=== PATIENT | male | born 1935 | race Caucasian/White ===

== ENCOUNTER 2016-11-18 10:41 | Inpatient (IN) | payer MEDICARE, BC ==
[2016-11-18] VITALS (12 sets, daily range): BP systolic 154–170; BP diastolic 67–77; PULSE 64–98; RESP 16–22; TEMP 97.6–98.3; O2SAT 94–99
[~2016-11-18] VITALS: Ht 162.6 cm; Wt 72.7 kg
[~2016-11-18 10:41] MED LIST: ASPI1TAB69 PO; ATOR10TA15 PO; ENAL10TA PO; METF500T PO; MULTTAB67 PO; OMEP20TA PO; PARO20TA2 PO; TOBRSUS9 RIGHT EYE; WARF4TAB51 PO
[2016-11-18] MEDS ORDERED: ASPI81CH PO (11:05)
[2016-11-18] MEDS ORDERED: SODIUM CHLORIDE 0.9% FLUSH 10 ML FLUSH IVF PRN (11:15)
[2016-11-18 11:36] LABS: AUTOMATED NEUTROPHIL # 3.9 TH/MM3 (1.8-7.7); BASOPHIL % 0.9 % (0.0-2.0); EOSINOPHIL # 0.1 TH/MM3 (0-0.4); EOSINOPHIL % 1.4 % (0.0-4.0); LYMPH % 20.7 % (9.0-44.0); LYMPHOCYTE # 1.2 TH/MM3 (1.0-4.8); MEAN CELL VOLUME 62.6 FL (80.0-100.0); MEAN CORPUSCULAR HEMOGLOBIN 17.4 PG (27.0-34.0); MONO % 9.6 % (0.0-8.0); NEUT % 67.4 % (16.0-70.0); PLATELET COUNT 257 TH/MM3 (150-450); RED BLOOD COUNT 3.49 MIL/MM3 (4.50-5.90); RED CELL DISTRIBUTION WIDTH 21.7 % (11.6-17.2); WHITE BLOOD COUNT 5.7 TH/MM3 (4.0-11.0)
[2016-11-18 11:40] LABS: HEMO FLAGS DIFF FINAL; MEAN CORPUSCULAR HGB CONC 27.8 % (32.0-36.0)
[2016-11-18 11:45] LABS: HEMATOCRIT 21.9 % (39.0-51.0)
[2016-11-18 11:49] LABS: APTT (PATIENT) 24.7 SEC (24.3-30.1); INTERNATIONAL NORMALIZED RATIO 1.7 RATIO; PROTHROMBIN TIME - PATIENT 18.7 SEC (9.8-11.6)
[2016-11-18 11:51] LABS: ALT (GPT) 13 U/L (12-78); ANION GAP 7 MEQ/L (5-15); AST (GOT) 9 U/L (15-37); BICARBONATE 23.8 MEQ/L (21.0-32.0); BLOOD UREA NITROGEN 14 MG/DL (7-18); CHLORIDE 110 MEQ/L (98-107); GLOMERULAR FILTRATION RATE 60 ML/MIN (>89); POTASSIUM 4.4 MEQ/L (3.5-5.1); SODIUM (NA) 141 MEQ/L (136-145)
[2016-11-18 11:54] LABS: ALKALINE PHOSPHATASE 63 U/L (45-117); TOTAL BILIRUBIN ADULT 0.4 MG/DL (0.2-1.0)
--- NOTE | 2016-11-18 12:38 | PD ---
HPI Chief Complaint: Abnormal Results Time Seen by Provider: 10:52 Travel History International Travel<30 days: No Contact w/Intl Traveler<30days: No Traveled to known affect area: No History of Present Illness HPI This is a 81-year-old male who presents to the emergency department having had an incidentally low hemoglobin checked by his primary care doctor. His hemoglobin was 5.9. He does say he's been more fatigued over the past several months, short of breath with exertion and tired when walking long distances but he says he thought it was related to his cigarette smoking, moderate severity, constant. He denies any dark stools or black stools. He had a colonoscopy 4 years ago and had polyps removed. She does straight 5 alcoholic beverages per day. He denies any NSAID use. PFSH Past Medical History Hx Anticoagulant Therapy: Yes Arthritis: Yes Atrial Fibrillation: Yes Cancer: No Cardiovascular Problems: Yes (A-FIB, ON COUMADIN) Congestive Heart Failure: No Diabetes: Yes Patient Takes Glucophage: Yes Diminished Hearing: No Endocrine: Yes Gastrointestinal Disorders: Yes (CONSTIPATION) Glaucoma: No Genitourinary: No Hepatitis: No Hiatal Hernia: No Hypertension: Yes Immune Disorder: No Musculoskeletal: Yes Neurologic: No Reproductive: No Respiratory: No Thyroid Disease: No Tetanus Vaccination: > 5 Years Influenza Vaccination: Yes Past Surgical History Abdominal Surgery: Yes Appendectomy: Yes Cardiac Surgery: No Ear Surgery: No Endocrine Surgery: No Eye Surgery: No Genitourinary Surgery: Yes (HYDROCELE 2003) Gynecologic Surgery: No Oral Surgery: No Pacemaker: No Thoracic Surgery: No Other Surgery: Yes Social History Alcohol Use: Yes (6 DRINKS PER DAY) Tobacco Use: Yes (< 1 PPD) Substance Use: No (pt denies) Allergies-Medications (Allergen,Severity, Reaction): Coded Allergies: penicillin G (Unverified Allergy, Severe, hives, 11/18/16) Reported Meds & Prescriptions Reported Meds & Active Scripts Active Reported Aspirin 81 Mg Chew 81 Mg PO DAILY Paroxetine (Paroxetine HCl) 20 Mg Tab 20 Mg PO DAILY Warfarin 2 Mg Tab 2 Mg PO DAILY Metformin (Metformin HCl) 500 Mg Tab 500 Mg PO BIDPC With meals Omeprazole 20 Mg Tab 20 Mg PO DAILY Atorvastatin (Atorvastatin Calcium) 10 Mg Tab 10 Mg PO HS Review of Systems Except as stated in HPI: all other systems reviewed are Neg Physical Exam Narrative GENERAL:Well appearing, no acute distress SKIN: Focused skin assessment warm and dry. HEAD: Atraumatic. Normocephalic. EYES: Pupils equal and round. No injection or drainage. ENT: Moist mucous membranes NECK: Trachea midline. CARDIOVASCULAR: Regular rate and rhythm. No murmur appreciated. RESPIRATORY: Clear to auscultation. Breath sounds equal bilaterally. GASTROINTESTINAL: Abdomen soft, non-tender, nondistended. MUSCULOSKELETAL: No obvious deformities. NEUROLOGICAL: Awake and alert. No obvious cranial nerve deficits. Moving all extremities. PSYCHIATRIC: Appropriate mood and affect; insight and judgment normal. Data Data Last Documented VS Vital Signs Date Time Temp Pulse Resp B/P (MAP) Pulse Ox O2 Delivery O2 Flow Rate FiO2 11/18/16 11:08 18 98 Room Air 11/18/16 11:07 108 11/18/16 10:44 97.9 Orders Orders Complete Blood Count With Diff (11/18/16 11:04) Comprehensive Metabolic Panel (11/18/16 11:04) Prothrombin Time / Inr (Pt) (11/18/16 11:04) Act Partial Throm Time (Ptt) (11/18/16 11:04) Type And Screen (11/18/16 11:04) Ecg Monitoring (11/18/16 11:04) Iv Access Insert/Monitor (11/18/16 11:04) Oximetry (11/18/16 11:04) Sodium Chloride 0.9% Flush (Ns Flush) (11/18/16 11:15) Admit Order (Ed Use Only) (11/18/16 12:29) Iron/Tibc Profile (11/18/16 12:29) Ferritin (11/18/16 12:29) Labs Laboratory Tests Test 11/18/16 11:15 White Blood Count 5.7 TH/MM3 Red Blood Count 3.49 MIL/MM3 Hemoglobin 6.1 GM/DL Hematocrit 21.9 % Mean Corpuscular Volume 62.6 FL Mean Corpuscular Hemoglobin 17.4 PG Mean Corpuscular Hemoglobin Concent 27.8 % Red Cell Distribution Width 21.7 % Platelet Count 257 TH/MM3 Mean Platelet Volume 8.5 FL Neutrophils (%) (Auto) 67.4 % Lymphocytes (%) (Auto) 20.7 % Monocytes (%) (Auto) 9.6 % Eosinophils (%) (Auto) 1.4 % Basophils (%) (Auto) 0.9 % Neutrophils # (Auto) 3.9 TH/MM3 Lymphocytes # (Auto) 1.2 TH/MM3 Monocytes # (Auto) 0.5 TH/MM3 Eosinophils # (Auto) 0.1 TH/MM3 Basophils # (Auto) 0.0 TH/MM3 CBC Comment DIFF FINAL Differential Comment Prothrombin Time 18.7 SEC Prothromb Time International Ratio 1.7 RATIO Activated Partial Thromboplast Time 24.7 SEC Blood Urea Nitrogen 14 MG/DL Creatinine 1.18 MG/DL Random Glucose 117 MG/DL Total Protein 7.8 GM/DL Albumin 3.6 GM/DL Calcium Level 8.4 MG/DL Alkaline Phosphatase 63 U/L Aspartate Amino Transf (AST/SGOT) 9 U/L Alanine Aminotransferase (ALT/SGPT) 13 U/L Total Bilirubin 0.4 MG/DL Sodium Level 141 MEQ/L Potassium Level 4.4 MEQ/L Chloride Level 110 MEQ/L Carbon Dioxide Level 23.8 MEQ/L Anion Gap 7 MEQ/L Estimat Glomerular Filtration Rate 60 ML/MIN MDM Medical Decision Making Medical Screen Exam Complete: Yes Emergency Medical Condition: Yes Interpretation(s) hbg 6.1 hct 62 microcytic electrolytes within normal limits Differential Diagnosis Upper GI bleed, lower GI bleed, anemia of chronic disease, vitamin deficiency Narrative Course This is a 81-year-old male who presents to the emergency department with a low hemoglobin. 3 days ago his hemoglobin was 5.9. He's been increasingly symptomatic. He denies any blood in his stools or black stools but he does drink 5 alcoholic beverages a day. He was placed on a monitor and an IV was established. He will be admitted in the setting of anemia for hemoglobin of 6.1. Patient will be transfused and GI will be consulted although patient did have a negative Hemoccult here in the ER. Diagnosis Primary Impression: Anemia Qualified Codes: D64.9 - Anemia, unspecified Admitting Information Admitting Physician Requests: Admit Alison Yi MD Nov 18, 2016 12:38
[2016-11-18] MEDS ORDERED: GLUCAGON 1 MG/ML VIAL OTHER PRN (13:00)
[2016-11-18] MEDS ORDERED: DEXTROSE 50% IN WATER 50 ML VIAL(D50) IV PRN (13:00)
[2016-11-18] MEDS ORDERED: SODIUM CHLORIDE 0.9% FLUSH 10 ML FLUSH IV FLUSH PRN ×3 (13:00→13:15)
[2016-11-18] MEDS ORDERED: NON-FORMULARY DRUG (Omeprazole 20 MG) PO SCH (13:00)
[2016-11-18] MEDS ORDERED: ACETAMINOPHEN 325 MG TAB PO PRN ×3 (13:15→15:30)
[2016-11-18] MEDS ORDERED: MORPHINE SULFATE 4 MG/ML INJ IV PRN ×2 (13:15)
[2016-11-18] MEDS ORDERED: SENNOSIDES 8.6 MG TAB PO PRN (13:15)
[2016-11-18] MEDS ORDERED: MAGNESIUM HYDROXIDE SUSP 30 ML CUP PO PRN (13:15)
[2016-11-18] MEDS ORDERED: LACTULOSE SYRUP 20 GM/30 ML CUP PO PRN (13:15)
[2016-11-18] MEDS ORDERED: RESP: ALBUTEROL 2.5 MG/IPRATROPIUM 0.5 MG NEB (PRN) NEB (13:15)
[2016-11-18] MEDS ORDERED: LORazepam 2 MG TAB PO PRN (13:15)
[2016-11-18] MEDS ORDERED: FLUMAZENIL 0.5 MG/5 ML VIAL IV PUSH PRN (13:15)
[2016-11-18] MEDS ORDERED: PROCHLORPERAZINE 25 MG SUPP RECTAL PRN (13:15)
[2016-11-18] MEDS ORDERED: NALOXONE HCL 0.4 MG/ML AMP IV PRN (13:15)
[2016-11-18] MEDS ORDERED: ONDANSETRON HCL 4 MG/2 ML VIAL IVP PRN (13:15)
[2016-11-18] MEDS ORDERED: oxyCODONE/ACETAMINOPHEN 10 MG/325 MG TAB PO PRN (13:15)
[2016-11-18] MEDS ORDERED: BISACODYL 10 MG SUPP RECTAL PRN (13:15)
[2016-11-18] MEDS ORDERED: LORazepam 2 MG/ML VIAL IV PUSH PRN ×4 (13:15)
[2016-11-18] MEDS ORDERED: cloNIDine HCL 0.1 MG TAB PO PRN (13:15)
[2016-11-18] MEDS ORDERED: LORazepam 1 MG TAB PO PRN (13:15)
[2016-11-18] MEDS ORDERED: oxyCODONE/ACETAMINOPHEN 5 MG/325 MG TAB PO PRN (13:15)
[2016-11-18 13:29] LABS: TRANSFERRIN IRON PROFILE 372 MG/DL (200-360)
[2016-11-18 13:31] LABS: FERRITIN 6 NG/ML (26-388)
--- NOTE | 2016-11-18 13:59 | HHI.HP ---
[facility] Service [facility] Primary Care Physician Non-Staff Admission Diagnosis anemia Diagnoses: (1) COPD (chronic obstructive pulmonary disease) Diagnosis: Secondary (2) GERD (gastroesophageal reflux disease) Diagnosis: Principal (3) Tobacco abuse Diagnosis: Secondary (4) Anemia Diagnosis: Principal (5) Alcohol abuse Diagnosis: Principal (6) Atrial fibrillation Diagnosis: Principal (7) Benign hypertension Diagnosis: Principal (8) Osteoarthritis (9) Hyperlipidemia Chief Complaint: Normal lab results anemia Travel History International Travel<30 Days: No Contact w/Intl Traveler <30 Da: No Traveled to Known Affected Are: No History of Present Illness Patient is a 81-year-old male who presents to the emergency department after having had an incidentally low hemoglobin checked by his primary care doctor. His hemoglobin was 5.9. He does say he's been more fatigued over the past several months, short of breath with exertion and tired when walking long distances but he says he thought it was related to his cigarette smoking, moderate severity, constant. He denies any dark stools or black stools. He had a colonoscopy 4 years ago and had polyps removed. He does drink 6 alcoholic beverages per day and states that he has not stopped that in an extended period time. He denies any NSAID use. Therefore patient will be covered with the [facility] protocol for his alcoholism NicoDerm for his tobacco abuse We'll get anemia labs Consult gastroenterology Transfuse 3 units packed red blood cells Review of Systems Constitutional: COMPLAINS OF: Fatigue, Chills, Dizziness, Change in appetite Endocrine: DENIES: Heat/cold intolerance, Polydipsia, Polyuria, Polyphagia Eyes: DENIES: Blurred vision, Diplopia, Eye inflammation, Eye pain, Vision loss , Photosensitivity Ears, nose, mouth, throat: DENIES: Tinnitus, Hearing loss, Vertigo, Nasal discharge Respiratory: COMPLAINS OF: Cough, Sputum production, Shortness of breath, DENIES: Apneas, Snoring, Wheezing, Hemoptysis Cardiovascular: DENIES: Chest pain, Palpitations, Syncope, Dyspnea on Exertion , PND, Lower Extremity Edema Gastrointestinal: DENIES: Abdominal pain, Black stools, Bloody stools, Constipation Genitourinary: DENIES: Sexual dysfunction, Urinary frequency Musculoskeletal: COMPLAINS OF: Joint pain, DENIES: Muscle aches, Stiffness, Joint Swelling, Back pain Integumentary: DENIES: Abnormal pigmentation, Nail changes Hematologic/lymphatic: DENIES: Bruising, Lymphadenopathy Immunologic/allergic: DENIES: Eczema, Urticaria Neurologic: DENIES: Abnormal gait, Headache, Localized weakness, Paresthesias, Seizures, Speech Problems, Tremor, Poor Balance Psychiatric: COMPLAINS OF: Depression, DENIES: Anxiety, Confusion, Mood changes , Hallucinations, Agitation, Suicidal Ideation, Homicidal Ideation Past Family Social History Past Medical History Chronic anticoagulation with Coumadin for atrial fibrillation Osteoarthritis Atrial fibrillation Diabetes mellitus on Glucophage Chronic constipation issues Hypertension Osteoarthritis Anxiety depression Hyperlipidemia GERD Past Surgical History Hydrocele repair and appendectomy Reported Medications Reported Meds & Active Scripts Active Reported Aspirin 81 Mg Chew 81 Mg PO DAILY Paroxetine (Paroxetine HCl) 20 Mg Tab 20 Mg PO DAILY Warfarin 2 Mg Tab 2 Mg PO DAILY Metformin (Metformin HCl) 500 Mg Tab 500 Mg PO BIDPC With meals Omeprazole 20 Mg Tab 20 Mg PO DAILY Atorvastatin (Atorvastatin Calcium) 10 Mg Tab 10 Mg PO HS Allergies: Coded Allergies: penicillin G (Unverified Allergy, Severe, hives, 11/18/16) Active Ordered Medications Current Medications Sodium Chloride (NS Flush) 2 ml UNSCH PRN IVF FLUSH AFTER USING IV ACCESS Last administered on 11/18/16t 11:15; Start 11/18/16 at 11:15 Atorvastatin Calcium (Lipitor) 10 mg HS PO ; Start 11/18/16 at 21:00; Status UNV Paroxetine HCl (Paxil) 20 mg DAILY PO ; Start 11/19/16 at 09:00; Status UNV Non-Formulary Medication 20 mg DAILY PO ; Start 11/18/16 at 13:00; Status UNV Dextrose (D50w (Vial) Inj) 50 ml UNSCH PRN IV HYPOGLYCEMIA-SEE COMMENTS; Start 11/18/16 at 13:00; Status UNV Glucagon (Glucagon Inj) 1 mg UNSCH PRN OTHER HYPOGLYCEMIA-SEE COMMENTS; Start 11/18/16 at 13:00; Status UNV Insulin Aspart (NovoLOG SUPPLEMENTAL SCALE) 1 ACHS SLIDING SCALE SQ ; Start at 16:00; Status UNV Sodium Chloride 250 ml @ 15 mls/hr ONCE ONCE IV ; Start 11/18/16 at 13:00; Stop 11/19/16 at 05:39; Status UNV Acetaminophen (Tylenol) 650 mg Q4H PRN PO SEE LABEL COMMENTS; Start 11/18/16 at 13:00; Status UNV Diphenhydramine HCl (Benadryl) 25 mg Q4H PRN PO SEE LABEL COMMENTS; Start 11/18 at 13:00; Status UNV Furosemide (Lasix Inj) 20 mg ONCE ONCE IV ; Start 11/18/16 at 13:00; Stop 11/18 at 13:01; Status UNV Sodium Chloride (NS Flush) 2 ml UNSCH PRN IV FLUSH FLUSH AFTER USING IV ACCESS ; Start 11/18/16 at 13:00; Status UNV Sodium Chloride (NS Flush) 2 ml BID IV FLUSH ; Start 11/18/16 at 21:00; Status UNV Pantoprazole Sodium (Protonix Inj) 40 mg BID IV ; Start 11/18/16 at 13:00; Status UNV Family History Diabetes and hypertension Social History Smokes a half a pack to a pack per day has been doing that for over 50+ years Drinks 6 alcoholic beverages daily Denies any illicit drug use Physical Exam Vital Signs Vital Signs Date Time Temp Pulse Resp B/P (MAP) Pulse Ox O2 Delivery O2 Flow Rate FiO2 11/18/16 11:08 18 98 Room Air 11/18/16 11:07 108 17 98 Room Air 11/18/16 10:44 97.9 98 16 169/73 (105) 99 Physical Exam GENERAL: This is a well-nourished, well-developed patient, in no apparent distress. SKIN: No rashes, ecchymoses or lesions. Cool and dry. HEAD: Atraumatic. Normocephalic. No temporal or scalp tenderness. EYES: Pupils equal round and reactive. Extraocular motions intact. No scleral icterus. No injection or drainage. ENT: Nose without bleeding, purulent drainage or septal hematoma. Throat without erythema, tonsillar hypertrophy or exudate. Uvula midline. Airway patent. Tongue is midline NECK: Trachea midline. No JVD or lymphadenopathy. Supple, nontender, no meningeal signs. CARDIOVASCULAR: IRRegular rate and rhythm without murmurs, gallops, or rubs. S1 -S2 no S3 or S4 no thrill RESPIRATORY: Coarse breath sounds bilaterally and scattered rhonchi. Breath sounds equal bilaterally. No wheezes, rales GASTROINTESTINAL: Abdomen soft, non-tender, nondistended. No hepato-splenomegaly , or palpable masses. No guarding. MUSCULOSKELETAL: Extremities without clubbing, cyanosis, or edema. No joint tenderness, effusion, or edema noted. No calf tenderness. Negative Homans sign bilaterally. NEUROLOGICAL: Awake and alert. Cranial nerves II through XII intact. Motor and sensory grossly within normal limits. Five out of 5 muscle strength in all muscle groups. Normal speech. Insight and judgment are good mood and behavior appropriate Laboratory Laboratory Tests Test 11/18/16 11:15 White Blood Count 5.7 Red Blood Count 3.49 Hemoglobin 6.1 Hematocrit 21.9 Mean Corpuscular Volume 62.6 Mean Corpuscular Hemoglobin 17.4 Mean Corpuscular Hemoglobin Concent 27.8 Red Cell Distribution Width 21.7 Platelet Count 257 Mean Platelet Volume 8.5 Neutrophils (%) (Auto) 67.4 Lymphocytes (%) (Auto) 20.7 Monocytes (%) (Auto) 9.6 Eosinophils (%) (Auto) 1.4 Basophils (%) (Auto) 0.9 Neutrophils # (Auto) 3.9 Lymphocytes # (Auto) 1.2 Monocytes # (Auto) 0.5 Eosinophils # (Auto) 0.1 Basophils # (Auto) 0.0 CBC Comment DIFF FINAL Differential Comment Prothrombin Time 18.7 Prothromb Time International Ratio 1.7 Activated Partial Thromboplast Time 24.7 Blood Urea Nitrogen 14 Creatinine 1.18 Random Glucose 117 Total Protein 7.8 Albumin 3.6 Calcium Level 8.4 Alkaline Phosphatase 63 Aspartate Amino Transf (AST/SGOT) 9 Alanine Aminotransferase (ALT/SGPT) 13 Total Bilirubin 0.4 Sodium Level 141 Potassium Level 4.4 Chloride Level 110 Carbon Dioxide Level 23.8 Anion Gap 7 Estimat Glomerular Filtration Rate 60 Result Diagram: 11/18/16 1115 11/18/16 111 Caprini VTE Risk Assessment Caprini VTE Risk Assessment: Mod/High Risk (score >= 2) Caprini Risk Assessment Model Point Value = 1 Point Value = 2 Point Value = 3 Point Value = 5 Age 41-60 Minor surgery BMI > 25 kg/m2 Swollen legs Varicose veins or History of unexplained or recurrent spontaneous Oral contraceptives or hormone replacement Sepsis (< 1 month) Serious lung disease, including pneumonia (< 1 month) Abnormal pulmonary function Acute myocardial infarction Congestive heart failure (< 1 month) History of inflammatory bowel disease Medical patient at bed rest Age 61-74 Arthroscopic surgery Major open surgery (> 45 min) Laparoscopic surgery (> 45 min) Malignancy Confined to bed (> 72 hours) Immobilizing plaster cast Central venous access Age >= 75 History of VTE Family history of VTE Factor V Leiden Prothrombin [id number] Lupus anticoagulant Anticardiolipin antibodies Elevated serum homocysteine Heparin-induced thrombocytopenia Other congenital or acquired thrombophilia Stroke (< 1 month) Elective arthroplasty Hip, pelvis, or leg fracture Acute spinal cord injury (< 1 month) Prophylaxis Regimen Total Risk Factor Score Risk Level Prophylaxis Regimen 0-1 Low Early ambulation 2 Moderate Order ONE of the following: *Sequential Compression Device (SCD) *Heparin 5000 units SQ BID 3-4 Higher Order ONE of the following medications: *Heparin 5000 units SQ TID *Enoxaparin/Lovenox 40 mg SQ daily (WT < 150 kg, CrCl > 30 mL/min) *Enoxaparin/Lovenox 30 mg SQ daily (WT < 150 kg, CrCl > 10-29 mL/min) *Enoxaparin/Lovenox 30 mg SQ BID (WT < 150 kg, CrCl > 30 mL/min) AND/OR *Sequential Compression Device (SCD) 5 or more Highest Order ONE of the following medications: *Heparin 5000 units SQ TID (Preferred with Epidurals) *Enoxaparin/Lovenox 40 mg SQ daily (WT < 150 kg, CrCl > 30 mL/min) *Enoxaparin/Lovenox 30 mg SQ daily (WT < 150 kg, CrCl > 10-29 mL/min) *Enoxaparin/Lovenox 30 mg SQ BID (WT < 150 kg, CrCl > 30 mL/min) AND *Sequential Compression Device (SCD) Assessment and Plan Problem List: (1) Osteoarthritis ICD Code: M19.90 - Unspecified osteoarthritis, unspecified site (2) Hyperlipidemia ICD Code: E78.5 - Hyperlipidemia, unspecified (3) GERD (gastroesophageal reflux disease) ICD Code: K21.9 - Gastro-esophageal reflux disease without esophagitis (4) Tobacco abuse ICD Code: Z72.0 - Tobacco use (5) Alcohol abuse ICD Code: F10.10 - Alcohol abuse, uncomplicated Status: Chronic (6) Atrial fibrillation ICD Code: I48.91 - Unspecified atrial fibrillation Status: Chronic (7) Benign hypertension ICD Code: I10 - Essential (primary) hypertension Status: Chronic (8) COPD (chronic obstructive pulmonary disease) ICD Code: J44.9 - Chronic obstructive pulmonary disease, unspecified (9) Anemia ICD Code: D64.9 - Anemia, unspecified Status: Acute Assessment and Plan Anemia close to the 6.1 range of hemoglobin We'll transfuse 3 units packed red blood cells we'll premedicate with Tylenol and Benadryl Continue on Protonix 40 mg IV twice a day Consult gastroenterology Tobacco abuse/COPD continue on DuoNeb nebs and Mucinex and sent to spirometry we 'll get a chest x-ray today continue on NicoDerm patch Hyperlipidemia continue on statin Depression anxiety continue on his PAROXETINE Chronic atrial fibrillation hold aspirin and warfarin at this time due to GI bleeding Diabetes mellitus continue on Accu-Cheks before meals and at bedtime and sliding scale coverage with insulin hold metformin MONITOR AFIB HOLD COUMADIN AM LABS GI CONSULT TRANSFUSE Code Status FULL CODE Discussed Condition With BAN RN AND ER AND PATIENT Physician Certification 2 Midnight Certification Type: Admission for Inpatient Services Order for Inpatient Services The services are ordered in accordance with Medicare regulations or non- Medicare payer requirements, as applicable. In the case of services not specified as inpatient-only, they are appropriately provided as inpatient services in accordance with the 2-midnight benchmark. Estimated LOS (days): 3 3 days is the estimated time the patient will need to remain in the hospital, assuming treatment plan goals are met and no additional complications. Post-Hospital Plan: Not yet determined Problem Qualifiers (1) Anemia: Qualified Codes: D64.9 - Anemia, unspecified Baudilio Mcclendon DO Nov 18, 2016 13:59
[2016-11-18] MEDS: RESP: ALBUTEROL 2.5 MG/IPRATROPIUM 0.5 MG NEB (SCH) NEB (14:00)
--- NOTE | 2016-11-18 14:22 | RADRPT ---
EXAM DATE/TIME: 11/18/2016 13:51 [facility] COMPARISON: CHEST SINGLE AP, March 31, 2015, 10:17. INDICATIONS : Short of breath. MEDICAL HISTORY : Hypertension. SURGICAL HISTORY : None. ENCOUNTER: Initial ACUITY: 1 day PAIN SCORE: 0/10 LOCATION: Bilateral chest FINDINGS: PA and lateral views of the chest show chronic interstitial fibrotic change which are stable. No acut e infiltrate or effusion. Top normal heart size. Hyperinflation with flattening of the hemidiaphragms . A scoliotic and degenerative spine. Old trauma involving the distal right clavicle. CONCLUSION: 1. Chronic interstitial changes are stable. 2. Hyperinflation suggesting COPD. 3. No acute infiltrate or effusion. Adrián Elena Jr., MD on November 18, 2016 at 14:19 Board Certified Radiologist. This report was verified electronically.
--- NOTE | 2016-11-18 15:06 | PD.CONS ---
HPI History of Present Illness This is a 81 year old male who was referred to the ER after he was found to be anemic on outpatient lab work. On arrival to the ER, he was noted to have an H/ H 6.1/21.9, MCV 62.6, MCHC 27.8, Iron 18, TIBC 521, Iron saturation 3.5%, Ferritin 6. He has not seen any obvious active GI bleeding. He denies any history of peptic ulcer disease, prior GI bleeding, or liver disease. He takes a daily aspirin, but denies any other blood thinners. However, he has coumadin on his MAY and when I asked about this, he did confirm that he takes coumadin. He does drink 5 alcoholic drinks per day, but denies any known history of liver disease. He has been more short of breath and tired than usual, but attributes this to a chest cold that he has had for the past week. He denies any nausea, vomiting, abdominal pain, constipation, diarrhea, bowel changes, melena, or hematochezia. He last had a colonoscopy about 4 years ago and had 2 benign polyps removed. (Siena Soria) PFSH Past Medical History Chronic anticoagulation with Coumadin for atrial fibrillation Osteoarthritis Atrial fibrillation Diabetes mellitus on Glucophage Hypertension Osteoarthritis Anxiety depression Hyperlipidemia GERD Colon polyps Past Surgical History Hydrocele repair Appendectomy Colonoscopy (Siena Soria) Coded Allergies: penicillin G (Unverified Allergy, Severe, hives, 11/18/16) Medications Allergies Coded Allergies Type Severity Reaction Last Updated Verified penicillin G Allergy Severe hives 11/18/16 No Active Scripts Medications Dose Route/Sig Max Daily Dose Days Date Category Dose Instructions Aspirin 81 Mg Chew 81 Mg PO DAILY 11/18/16 Reported Paroxetine (Paroxetine HCl) 20 Mg Tab 20 Mg PO DAILY 05/25/16 Reported Warfarin 2 Mg Tab 2 Mg PO DAILY 05/25/16 Reported Metformin (Metformin HCl) 500 Mg Tab 500 Mg PO BIDPC 05/25/16 Reported With meals Omeprazole 20 Mg Tab 20 Mg PO DAILY 05/25/16 Reported Atorvastatin (Atorvastatin Calcium) 10 Mg Tab 10 Mg PO HS 05/25/16 Reported Family History Denies any family hx of esophageal, gastric, or colorectal cancer. Social History Smokes a half a pack to a pack per day x 60 years Drinks 6 alcoholic beverages daily Denies any illicit drug use (Siena Soria ELIJAH) Review of Systems Constitutional: COMPLAINS OF: Fatigue, Weight loss (mild, 10 lbs over several years) Respiratory: COMPLAINS OF: Cough, Shortness of breath Gastrointestinal: DENIES: Abdominal pain, Black stools, Bloody stools, Constipation, Diarrhea, Nausea, Vomiting, Swelling of Abdomen, Heartburn Integumentary: DENIES: Abnormal pigmentation Hematologic/lymphatic: DENIES: Bruising Neurologic: DENIES: Headache Psychiatric: DENIES: Confusion (Siena Sorialiliana NAVA) GI Exam Vitals I&O Vital Signs Date Time Temp Pulse Resp B/P (MAP) Pulse Ox O2 Delivery O2 Flow Rate FiO2 11/18/16 13:22 99 21 11/18/16 11:08 18 98 Room Air 11/18/16 11:07 108 17 98 Room Air 11/18/16 10:44 97.9 98 16 169/73 (105) 99 Imaging Last Impressions Chest X-Ray 11/18/16 0000 Signed Impressions: Service Date/Time: Friday, November 18, 2016 13:51 - CONCLUSION: 1. Chronic interstitial changes are stable. 2. Hyperinflation suggesting COPD. 3. No acute infiltrate or effusion. Adrián Elena Jr., MD Laboratory Test 11/18/16 11:15 White Blood Count 5.7 TH/MM3 Red Blood Count 3.49 MIL/MM3 Hemoglobin 6.1 GM/DL Hematocrit 21.9 % Mean Corpuscular Volume 62.6 FL Mean Corpuscular Hemoglobin 17.4 PG Mean Corpuscular Hemoglobin Concent 27.8 % Red Cell Distribution Width 21.7 % Platelet Count 257 TH/MM3 Mean Platelet Volume 8.5 FL Neutrophils (%) (Auto) 67.4 % Lymphocytes (%) (Auto) 20.7 % Monocytes (%) (Auto) 9.6 % Eosinophils (%) (Auto) 1.4 % Basophils (%) (Auto) 0.9 % Neutrophils # (Auto) 3.9 TH/MM3 Lymphocytes # (Auto) 1.2 TH/MM3 Monocytes # (Auto) 0.5 TH/MM3 Eosinophils # (Auto) 0.1 TH/MM3 Basophils # (Auto) 0.0 TH/MM3 CBC Comment DIFF FINAL Differential Comment Prothrombin Time 18.7 SEC Prothromb Time International Ratio 1.7 RATIO Activated Partial Thromboplast Time 24.7 SEC Blood Urea Nitrogen 14 MG/DL Creatinine 1.18 MG/DL Random Glucose 117 MG/DL Total Protein 7.8 GM/DL Albumin 3.6 GM/DL Calcium Level 8.4 MG/DL Alkaline Phosphatase 63 U/L Aspartate Amino Transf (AST/SGOT) 9 U/L Alanine Aminotransferase (ALT/SGPT) 13 U/L Total Bilirubin 0.4 MG/DL Sodium Level 141 MEQ/L Potassium Level 4.4 MEQ/L Chloride Level 110 MEQ/L Carbon Dioxide Level 23.8 MEQ/L Anion Gap 7 MEQ/L Estimat Glomerular Filtration Rate 60 ML/MIN Iron Level 18 MCG/DL Total Iron Binding Capacity 521 MCG/DL Percent Iron Saturation 3.5 % Ferritin 6 NG/ML Physical Examination HEENT: Normocephalic; atraumatic; no jaundice. CHEST: CTA, diminished CARDIAC: Irregular ABDOMEN: Soft, nondistended, nontender; no hepatosplenomegaly; bowel sounds are present in all four quadrants. EXTREMITIES: No clubbing, cyanosis, or edema. SKIN: Generalized pallor [employer]: No focal deficits; alert and oriented times three. (Siena Soria) Assessment and Plan Plan ASSESSMENT: - Iron Deficiency Anemia. Sent to ER for abnormal outpatient labs. On arrival , H/H 6.1/21.9, MCV 62.6, MCHC 27.8, Iron 18, TIBC 521, Iron saturation 3.5%, Ferritin 6. He has not seen any obvious active GI bleeding. Denies PUD or GIB. (+) Coumadin, (+) Baby ASA. (+) 5 etoh drinks per day. No GI symptoms. Last colonoscopy was 4 years and reports that he had 2 benign polyps removed. PRBC ordered. INR 1.7. Recommend EGD/Colonoscopy, but patient is adamantly refusing colonoscopy and is only agreeable to EGD. PPI. Clear liquids. NPO after MN - GERD, asymptomatic on omeprazole at home. - Afib, on coumadin. Currently on hold. INR 1.7. - ETOH use, 5 drinks per day. DT precautions per attending. - OA, DM, HTN, Anxiety/Depression, Hyperlipidemia per attending. PLAN: - Plan for EGD in am - Obtain consents - Clear liquids - NPO after MN - Protonix with BID dosing - Agree with transfusions - CBC, PT/INR, BMP in am - Supportive care - Further recommendations to follow based on results of above - Refusing colonoscopy - Pt seen and examined by Dr. Del Valle and myself and this note is written on his behalf (Siena Soria) Physician Comments Seen and examined with Siena, plan as above. Refusing Colonoscopy despite that he had scope more than 10 years ago. Will schedule EGD for now, agree with treatment for now and blood transfusion Further recommendations to follow. (Tai Del Valle MD) Siena Soria Nov 18, 2016 15:06 Tai Del Valle MD Nov 18, 2016 17:10
[2016-11-18] MEDS ORDERED: SODIUM CHLOR 0.9% 250 ML INJ 250 ML IV ONE (15:15)
[2016-11-18] MEDS ORDERED: guaiFENesin E.R. 600 MG TAB PO SCH (15:30)
[2016-11-18] MEDS ORDERED: FUROSEMIDE 20 MG/2 ML VIAL IV ONE (16:00)
[2016-11-18] MEDS: THIAMINE HCL 100 MG TAB PO SCH (16:04)
[2016-11-18] MEDS: PANTOPRAZOLE SODIUM 40 MG VIAL IV SCH (16:04)
[2016-11-18] MEDS: guaiFENesin E.R. 600 MG TAB PO SCH (16:04)
[2016-11-18] MEDS: FOLIC ACID 1 MG TAB PO SCH (16:04)
[2016-11-18] MEDS: MULTIVITAMINS/MINERALS THERAPEUTIC TAB PO SCH (16:04)
[2016-11-18] MEDS: INSULIN ASPART SUPPLEMENTAL SCALE SQ SCH ×2 (16:30→21:00)
[2016-11-18] MEDS: diphenhydrAMINE HCL 25 MG CAP PO PRN ×2 (16:36→22:11)
[2016-11-18] MEDS ORDERED: ZOLPIDEM TARTRATE 5 MG TAB PO PRN (21:00)
[2016-11-18] MEDS: SODIUM CHLORIDE 0.9% FLUSH 10 ML FLUSH IV FLUSH SCH (21:00)
[2016-11-18] MEDS ORDERED: SODIUM CHLORIDE 0.9% FLUSH 10 ML FLUSH IV FLUSH SCH ×2 (21:00)
[2016-11-18] MEDS: ATORVASTATIN 10 MG TAB PO SCH (22:12)
[2016-11-18] MEDS: DOCUSATE SODIUM 50 MG/SENNA 8.6 MG TAB PO SCH (22:12)
[2016-11-19] VITALS (15 sets, daily range): BP systolic 137–180; BP diastolic 58–79; PULSE 58–99; RESP 16–21; TEMP 96.9–98.1; O2SAT 93–98
[2016-11-19] MEDS: INSULIN ASPART SUPPLEMENTAL SCALE SQ SCH ×4 (04:48→20:22)
[2016-11-19] MEDS: PANTOPRAZOLE SODIUM 40 MG VIAL IV SCH ×2 (04:48→18:00)
[2016-11-19] MEDS: guaiFENesin E.R. 600 MG TAB PO SCH ×2 (04:48→17:00)
[2016-11-19 07:43] LABS: AUTOMATED NEUTROPHIL # 3.1 TH/MM3 (1.8-7.7); BASOPHIL # 0.1 TH/MM3 (0-0.2); BASOPHIL % 1.1 % (0.0-2.0); EOSINOPHIL # 0.2 TH/MM3 (0-0.4); EOSINOPHIL % 3.9 % (0.0-4.0); HEMATOCRIT 32.2 % (39.0-51.0); LYMPH % 22.1 % (9.0-44.0); LYMPHOCYTE # 1.1 TH/MM3 (1.0-4.8); MEAN CELL VOLUME 68.1 FL (80.0-100.0); MEAN CORPUSCULAR HEMOGLOBIN 20.8 PG (27.0-34.0); MEAN CORPUSCULAR HGB CONC 30.6 % (32.0-36.0); MONO % 9.8 % (0.0-8.0); NEUT % 63.1 % (16.0-70.0); PLATELET COUNT 224 TH/MM3 (150-450); RED BLOOD COUNT 4.72 MIL/MM3 (4.50-5.90); RED CELL DISTRIBUTION WIDTH 25.7 % (11.6-17.2); WHITE BLOOD COUNT 4.9 TH/MM3 (4.0-11.0)
[2016-11-19 07:50] LABS: RETIC % 1.4 % (0.4-3.0)
[2016-11-19 07:53] LABS: INTERNATIONAL NORMALIZED RATIO 1.5 RATIO
[2016-11-19 07:58] LABS: HEMO FLAGS AUTO DIFF
[2016-11-19 07:59] LABS: REVIEW FLAG FINAL
[2016-11-19] MEDS: RESP: ALBUTEROL 2.5 MG/IPRATROPIUM 0.5 MG NEB (SCH) NEB ×3 (07:59→20:00)
[2016-11-19 08:04] LABS: ANION GAP 9 MEQ/L (5-15); AST (GOT) 15 U/L (15-37); BICARBONATE 26.7 MEQ/L (21.0-32.0); BLOOD UREA NITROGEN 11 MG/DL (7-18); CHLORIDE 104 MEQ/L (98-107); GLOMERULAR FILTRATION RATE 65 ML/MIN (>89); MAGNESIUM 1.6 MG/DL (1.5-2.5); POTASSIUM 3.9 MEQ/L (3.5-5.1); SODIUM (NA) 140 MEQ/L (136-145)
[2016-11-19 08:05] LABS: LDH SERUM 163 U/L (87-241)
[2016-11-19 08:12] LABS: WESTERGREN SEDIMENTATION RATE 44 mm/hr (0-20)
[2016-11-19 08:30] LABS: ALKALINE PHOSPHATASE 67 U/L (45-117); ALT (GPT) 15 U/L (12-78); FERRITIN 9 NG/ML (26-388); FREE T4 0.91 NG/DL (0.76-1.46); TRANSFERRIN IRON PROFILE 398 MG/DL (200-360)
[2016-11-19] MEDS: SODIUM CHLORIDE 0.9% FLUSH 10 ML FLUSH IV FLUSH SCH ×2 (09:00→20:22)
[2016-11-19 09:08] LABS: KERATOCYTES OCC (NORMAL); OVALOCYTES 1+ (NORMAL); SCAN/DIFF AUTO DIFF CONFIRMED
[2016-11-19] MEDS: PARoxetine HCL 20 MG TAB PO SCH (10:18)
[2016-11-19] MEDS ORDERED: PROPOFOL 200 MG/20 ML AMP IV PUSH ONE (11:42)
--- NOTE | 2016-11-19 11:51 | GIPROC ---
[facility] [address] [facility]. [facility], [address] EGD PROCEDURE REPORT EXAM DATE: 11/19/2016 PATIENT NAME: Guero Heredia MR #: [id number] BIRTHDATE: 1935 ATTENDING: Tai Del Valle MD ORDER #: [id number] TAR PROCESSING TECHNICIAN: Armaan Turpin and Rosi Coyle STATUS: inpatient INDICATIONS: The patient is a 81 yr old male here for an EGD due to anemia PROCEDURE PERFORMED: EGD w/ biopsy MEDICATIONS: None and Per Anesthesia. TOPICAL ANESTHETIC: none CONSENT: The patient understands the risks and benefits of the procedure and understands that these risks include, but are not limited to: sedation, allergic reaction, infection, perforation and/or bleeding. Alternative means of evaluation and treatment include, among others: physical exam, x-rays, and/or surgical intervention. The patient elects to proceed with this endoscopic procedure. medical equipment was checked for proper function. Hand hygiene and appropriate measures for infection prevention was taken. After the risks, benefits and alternatives of the procedure were thoroughly explained, Informed consent was verified, confirmed and timeout was successfully executed by the treatment team. The patient was anesthetized with topical anesthesia and the Hubskipax [id number] endoscope was introduced through the mouth and advanced to the second portion of the duodenum. Retroflexed views revealed a hiatal hernia The gastroscope was then slowly withdrawn and removed. ESOPHAGUS: A 3 cm hiatal hernia was noted. STOMACH: Thick gastric folds involoving the entire stomach, biopsies taken. DUODENUM: The duodenal mucosa appeared normal in the bulb and second portion of the duodenum. ADVERSE EVENTS: There were no complications. IMPRESSIONS: 1. 3 cm hiatal hernia 2. Thick gastric folds involoving the entire stomach, biopsies taken 3. Normal duodenal mucosa in the bulb and second portion of the duodenum RECOMMENDATIONS: 1. Await biopsy results. Biopsy results will not be ready for 7-10 days. If you don't hear from us in two weeks, call our office for biopsy results. 2. Colonoscopy when patient agree PATIENT CONDITION: stable DISPOSITION: Observation REPEAT EXAM: NONE Tai Del Valle MD eSigned: Tai Del Valle MD 11/19/2016 11:51 AM cc: PATIENT NAME: Yan Guero Hernandez MR#: [id number]
--- NOTE | 2016-11-19 12:51 | HHI.PR ---
Subjective Remarks patient states sob much improved denies cp sp EGD today Denies melena or hematochezia Denies nausea. Has a good appetite. Objective Vitals Vital Signs Date Time Temp Pulse Resp B/P (MAP) Pulse Ox O2 Delivery O2 Flow Rate FiO2 11/19/16 12:32 97.5 82 16 141/67 (91) 96 11/19/16 12:00 97.7 93 20 150/70 (96) 99 11/19/16 08:00 98.0 72 20 159/67 (97) 93 11/19/16 06:25 70 11/19/16 06:00 98.1 68 20 152/74 94 11/19/16 05:45 94 11/19/16 04:00 97.2 58 16 163/75 (104) 94 11/19/16 03:17 97.4 58 20 156/72 98 11/19/16 03:02 97.4 86 18 157/74 94 11/19/16 02:26 97.8 68 20 137/58 96 11/19/16 00:00 97.0 71 16 146/69 (94) 94 11/18/16 23:20 98.1 68 20 155/72 94 11/18/16 22:56 97.6 68 22 159/70 94 11/18/16 20:00 97.7 66 16 165/77 (106) 96 11/18/16 18:30 98.0 64 16 170/72 (104) 97 11/18/16 18:28 98.2 78 17 163/72 (102) 98 11/18/16 17:31 98.2 78 17 163/72 (102) 98 Room Air 11/18/16 15:51 98.2 80 16 165/71 98 11/18/16 15:36 98.3 86 17 154/67 98 11/18/16 13:22 99 21 11/18/16 13:10 97.8 92 16 170/72 (104) 98 Room Air I/O 11/18/16 11/18/16 11/18/16 11/19/16 11/19/16 11/19/16 07:00 15:00 23:00 07:00 15:00 23:00 Intake Total 995 ml 1080 ml 400 ml Output Total 500 ml Balance 995 ml 580 ml 400 ml Intake Oral 480 ml Packed Cells 250 ml 500 ml Blood Product IV Normal Saline Flush 265 ml 580 ml Other 400 ml Output Urine Total 500 ml Result Diagram: 11/19/1672411/19/16724 Imaging Last Impressions Chest X-Ray 11/18/16 0000 Signed Impressions: Service Date/Time: Friday, November 18, 2016 13:51 - CONCLUSION: 1. Chronic interstitial changes are stable. 2. Hyperinflation suggesting COPD. 3. No acute infiltrate or effusion. Adrián Elena Jr., MD Objective Remarks AAOx3, NAD sitting eating lunch S1S2 RRR, no MRG Clear lungs BL Soft abdomen, non tender, non distended Medications and IVs Current Medications Medications (Trade) Dose Ordered Sig/Navin Route Start Time Stop Time Status Last Admin (NS Flush) 2 ml UNSCH PRN IVF 11/18/16 11:15 11/18/16 11:15 (Lipitor) 10 mg HS PO 11/18/16 21:00 11/18/16 22:12 (Paxil) 20 mg DAILY PO 11/19/16 09:00 (D50w (Vial) Inj) 50 ml UNSCH PRN IV 11/18/16 13:00 (Glucagon Inj) 1 mg UNSCH PRN OTHER 11/18/16 13:00 (NovoLOG SUPPLEMENTAL SCALE) 1 ACHS SLIDING SCALE SQ 11/18/16 16:00 (Protonix Inj) 40 mg Q12H IV 11/18/16 16:00 11/19/16 04:48 (Tylenol) 650 mg Q4H PRN PO 11/18/16 13:15 (Zofran Inj) 4 mg Q6H PRN IVP 11/18/16 13:15 (Compazine Supp) 25 mg Q12H PRN RECTAL 11/18/16 13:15 (Ambien) 5 mg HS PRN PO 11/18/16 21:00 (Tylenol) 650 mg Q6H PRN PO 11/18/16 13:15 (Percocet 5-325 Mg) 1 tab Q6H PRN PO 11/18/16 13:15 (Percocet 10-325 Mg) 1 tab Q6H PRN PO 11/18/16 13:15 (Morphine Inj) 2 mg Q3H PRN IV 11/18/16 13:15 (Morphine Inj) 4 mg Q3H PRN IV 11/18/16 13:15 (Narcan Inj) 0.4 mg UNSCH PRN IV 11/18/16 13:15 (Soumya-Colace) 1 tab BID PO 11/18/16 21:00 11/18/16 22:12 (Milk Of Magnesia Liq) 30 ml Q12H PRN PO 11/18/16 13:15 (Senokot) 17.2 mg Q12H PRN PO 11/18/16 13:15 (Dulcolax Supp) 10 mg DAILY PRN RECTAL 11/18/16 13:15 (Lactulose Liq) 30 ml DAILY PRN PO 11/18/16 13:15 (Romazicon Inj) 0.2 mg Q1M PRN IV PUSH 11/18/16 13:15 (Ativan) 1 mg Q4H PRN PO 11/18/16 13:15 (Ativan Inj) 1 mg Q4H PRN IV PUSH 11/18/16 13:15 (Ativan) 2 mg Q2H PRN PO 11/18/16 13:15 (Ativan Inj) 2 mg Q2H PRN IV PUSH 11/18/16 13:15 (Ativan Inj) 2 mg Q1H PRN IV PUSH 11/18/16 13:15 (Ativan Inj) 2 mg Q15M PRN IV PUSH 11/18/16 13:15 (NS Flush) 2 ml BID IV FLUSH 11/18/16 21:00 (Folate) 1 mg DAILY PO 11/18/16 16:00 11/23/16 15:59 11/18/16 16:04 (Vitamin B1) 100 mg DAILY PO 11/18/16 16:00 11/18/16 16:04 (Theragran M Tab) 1 tab DAILY PO 11/18/16 16:00 11/23/16 15:59 11/18/16 16:04 (Catapres) 0.1 mg Q6H PRN PO 11/18/16 13:15 (Duoneb Neb) 1 ampule Q6HR WHILE AWAKE NEB NEB 11/18/16 14:00 (Duoneb Neb) 1 ampule Q4HR NEB PRN NEB 11/18/16 13:15 (Mucinex Er) 600 mg Q12H PO 11/18/16 17:00 11/19/16 04:48 A/P Problem List: (1) Anemia ICD Code: D64.9 - Anemia, unspecified Status: Acute Plan: Patient with severe symptomatic microcytic anemia and hemoglobin of 6. one on admission. Patient is supposed arthritis and denies NSAID use. Patient also has history of alcohol abuse. The patient status post fusion of 3 units of packed red blood cells with appropriate response of hemoglobin up to 9.8. Iron studies show low iron of 18, TIBC of 521 and percent saturation of 2.5%. Will check ferritin. Continue to monitor hemoglobin and for active bleeding. The patient status post EGD with findings of a 3 cm hiatal hernia, thickened gastric folds involving the entire stomach, biopsies were obtained. Follow-up pathology. (2) Hyperlipidemia ICD Code: E78.5 - Hyperlipidemia, unspecified Status: Chronic Plan: Continue statin. Monitor as an outpatient. (3) GERD (gastroesophageal reflux disease) ICD Code: K21.9 - Gastro-esophageal reflux disease without esophagitis Status: Chronic Plan: Continue PPI. (4) Tobacco abuse ICD Code: Z72.0 - Tobacco use Plan: Is x-ray obtained and showed chronic interstitial changes which I described to be stable. Hyperinflation suggestive of COPD. No acute infiltrate or effusion. INR on admission subtherapeutic at 1.7, trending down to 1.5 today. Continue to monitor PT/INR and continue to hold aspirin and Coumadin until cleared by GI to be restarted. (5) Alcohol abuse ICD Code: F10.10 - Alcohol abuse, uncomplicated Status: Chronic Plan: No evidence of alcohol withdrawal. Continue with CIWA protocol. (6) Atrial fibrillation ICD Code: I48.91 - Unspecified atrial fibrillation Status: Chronic Plan: Patient on aspirin and Coumadin at home which were held on admission. (7) Benign hypertension ICD Code: I10 - Essential (primary) hypertension Status: Chronic Plan: BP seems to be stable. Apparently the patient's is not on any antihypertensive medication. We'll continue to monitor off BP meds. (8) COPD (chronic obstructive pulmonary disease) ICD Code: J44.9 - Chronic obstructive pulmonary disease, unspecified Plan: The pressure seems to be stable. The patient can follow-up with PMD for further management. Continue duo nebs will hospitalized. (9) Osteoarthritis ICD Code: M19.90 - Unspecified osteoarthritis, unspecified site Status: Chronic Plan: Patient denies NSAID use. Tylenol as needed for pain. (10) Depression ICD Code: F32.9 - Major depressive disorder, single episode, unspecified Plan: Continue paroxetine. Seems to be stable. (11) Diabetes ICD Code: E11.9 - Type 2 diabetes mellitus without complications Plan: Patient on metformin which was held admission. Continue SSI with insulin NovoLog and continue to monitor Accu-Cheks. Blood sugar seems stable. Assessment and Plan GI prophylaxis: On PPI. DVT prophylaxis: Continue with SCDs, I will chemoprophylaxis given severe anemia. Discharge Planning DC pending GI clearance and stabilization of hemoglobin. Problem Qualifiers (1) Anemia: Qualified Codes: D64.9 - Anemia, unspecified (2) GERD (gastroesophageal reflux disease): Qualified Codes: K21.9 - Gastro-esophageal reflux disease without esophagitis (3) Atrial fibrillation: Qualified Codes: I48.2 - Chronic atrial fibrillation (4) Diabetes: Qualified Codes: E11.9 - Type 2 diabetes mellitus without complications Hans Schneider MD Nov 19, 2016 12:51
[2016-11-19 16:50] LABS: HEMOGLOBIN A1a 1.4 %; HEMOGLOBIN A1b 1.8 %; HEMOGLOBIN Ao 84.3 %; HEMOGLOBIN LA1C 2.1 %; HEMOGLOBIN P3 3.9 %
[2016-11-19] MEDS: DOCUSATE SODIUM 50 MG/SENNA 8.6 MG TAB PO SCH ×2 (18:00→20:22)
[2016-11-19] MEDS: FOLIC ACID 1 MG TAB PO SCH (18:00)
[2016-11-19] MEDS: THIAMINE HCL 100 MG TAB PO SCH (18:00)
[2016-11-19] MEDS: MULTIVITAMINS/MINERALS THERAPEUTIC TAB PO SCH (18:00)
[2016-11-19] MEDS: ATORVASTATIN 10 MG TAB PO SCH (20:22)
[2016-11-20] VITALS (8 sets, daily range): BP systolic 117–163; BP diastolic 56–71; PULSE 56–90; RESP 15–18; TEMP 97–97.6; O2SAT 94–98
[2016-11-20] MEDS: PANTOPRAZOLE SODIUM 40 MG VIAL IV SCH (04:22)
[2016-11-20] MEDS: INSULIN ASPART SUPPLEMENTAL SCALE SQ SCH (04:25)
[2016-11-20] MEDS: guaiFENesin E.R. 600 MG TAB PO SCH (04:25)
[2016-11-20] MEDS: RESP: ALBUTEROL 2.5 MG/IPRATROPIUM 0.5 MG NEB (SCH) NEB ×2 (08:25→13:00)
[2016-11-20] MEDS: PARoxetine HCL 20 MG TAB PO SCH (09:00)
[2016-11-20] MEDS: DOCUSATE SODIUM 50 MG/SENNA 8.6 MG TAB PO SCH (09:00)
[2016-11-20] MEDS: THIAMINE HCL 100 MG TAB PO SCH (09:27)
[2016-11-20] MEDS: MULTIVITAMINS/MINERALS THERAPEUTIC TAB PO SCH (09:27)
[2016-11-20] MEDS: FOLIC ACID 1 MG TAB PO SCH (09:27)
[2016-11-20] MEDS: SODIUM CHLORIDE 0.9% FLUSH 10 ML FLUSH IV FLUSH SCH (09:28)
--- NOTE | 2016-11-20 12:17 | EKG ---
Date Performed: 11/19/2016 Time Performed: 11:17:31 PTAGE: 81 years EKG: Sinus rhythm BORDERLINE LEFT AXIS DEVIATION POSSIBLE LEFT VENTRICULAR HYPERTROPHY SLIGHT INCREASE IN VOLTAGE COMP ARED TO PRIOR TRACING ABNORMAL ECG PREVIOUS TRACING : 03/28/2015 14.49 DOCTOR: Scott Mo Interpretating Date/Time 11/20/2016 12:16:20
--- NOTE | 2016-11-20 12:21 | HHI.PR ---
Subjective Remarks The patient states that he feels very hungry. Denies melena, hematochezia Denies dizziness, chest pain or shortness of breath Objective Vitals Vital Signs Date Time Temp Pulse Resp B/P (MAP) Pulse Ox O2 Delivery O2 Flow Rate FiO2 11/20/16 08:27 98 11/20/16 07:46 97.2 60 18 143/61 (88) 98 11/20/16 04:00 97.0 58 15 163/71 (101) 94 11/20/16 04:00 56 11/20/16 00:00 97.6 65 16 117/56 (76) 94 11/19/16 23:00 73 11/19/16 20:00 97.8 72 18 175/79 (111) 95 11/19/16 19:34 63 11/19/16 16:00 98.1 87 20 180/76 (110) 96 11/19/16 13:16 99 11/19/16 12:32 97.5 82 16 141/67 (91) 96 I/O 11/19/16 11/19/16 11/19/16 11/20/16 11/20/16 11/20/16 07:00 15:00 23:00 07:00 15:00 23:00 Intake Total 1080 ml 780 ml 240 ml Output Total 500 ml Balance 580 ml 780 ml 240 ml Intake Oral 380 ml 240 ml Packed Cells 500 ml Blood Product IV Normal Saline Flush 580 ml Other 400 ml Output Urine Total 500 ml # Voids 3 # Bowel Movements 1 Result Diagram: 11/19/16 0725 11/19/16 0725 Imaging Last Impressions Chest X-Ray 11/18/16 0000 Signed Impressions: Service Date/Time: Friday, November 18, 2016 13:51 - CONCLUSION: 1. Chronic interstitial changes are stable. 2. Hyperinflation suggesting COPD. 3. No acute infiltrate or effusion. Adrián Elena Jr., MD Objective Remarks AAOx3, NAD lying in bed S1S2 RRR, no MRG Clear lungs BL Soft abdomen, non tender, non distended Medications and IVs Current Medications Medications (Trade) Dose Ordered Sig/Navin Route Start Time Stop Time Status Last Admin (NS Flush) 2 ml UNSCH PRN IVF 11/18/16 11:15 11/18/16 11:15 (Lipitor) 10 mg HS PO 11/18/16 21:00 11/18/16 22:12 (Paxil) 20 mg DAILY PO 11/19/16 09:00 (D50w (Vial) Inj) 50 ml UNSCH PRN IV 11/18/16 13:00 (Glucagon Inj) 1 mg UNSCH PRN OTHER 11/18/16 13:00 (NovoLOG SUPPLEMENTAL SCALE) 1 ACHS SLIDING SCALE SQ 11/18/16 16:00 (Protonix Inj) 40 mg Q12H IV 11/18/16 16:00 11/20/16 04:22 (Tylenol) 650 mg Q4H PRN PO 11/18/16 13:15 (Zofran Inj) 4 mg Q6H PRN IVP 11/18/16 13:15 (Compazine Supp) 25 mg Q12H PRN RECTAL 11/18/16 13:15 (Ambien) 5 mg HS PRN PO 11/18/16 21:00 (Tylenol) 650 mg Q6H PRN PO 11/18/16 13:15 (Percocet 5-325 Mg) 1 tab Q6H PRN PO 11/18/16 13:15 (Percocet 10-325 Mg) 1 tab Q6H PRN PO 11/18/16 13:15 (Morphine Inj) 2 mg Q3H PRN IV 11/18/16 13:15 (Morphine Inj) 4 mg Q3H PRN IV 11/18/16 13:15 (Narcan Inj) 0.4 mg UNSCH PRN IV 11/18/16 13:15 (Soumya-Colace) 1 tab BID PO 11/18/16 21:00 11/18/16 22:12 (Milk Of Magnesia Liq) 30 ml Q12H PRN PO 11/18/16 13:15 (Senokot) 17.2 mg Q12H PRN PO 11/18/16 13:15 (Dulcolax Supp) 10 mg DAILY PRN RECTAL 11/18/16 13:15 (Lactulose Liq) 30 ml DAILY PRN PO 11/18/16 13:15 (Romazicon Inj) 0.2 mg Q1M PRN IV PUSH 11/18/16 13:15 (Ativan) 1 mg Q4H PRN PO 11/18/16 13:15 (Ativan Inj) 1 mg Q4H PRN IV PUSH 11/18/16 13:15 (Ativan) 2 mg Q2H PRN PO 11/18/16 13:15 (Ativan Inj) 2 mg Q2H PRN IV PUSH 11/18/16 13:15 (Ativan Inj) 2 mg Q1H PRN IV PUSH 11/18/16 13:15 (Ativan Inj) 2 mg Q15M PRN IV PUSH 11/18/16 13:15 (NS Flush) 2 ml BID IV FLUSH 11/18/16 21:00 11/20/16 09:28 (Folate) 1 mg DAILY PO 11/18/16 16:00 11/23/16 15:59 11/20/16 09:27 (Vitamin B1) 100 mg DAILY PO 11/18/16 16:00 11/20/16 09:27 (Theragran M Tab) 1 tab DAILY PO 11/18/16 16:00 11/23/16 15:59 11/20/16 09:27 (Catapres) 0.1 mg Q6H PRN PO 11/18/16 13:15 (Duoneb Neb) 1 ampule Q6HR WHILE AWAKE NEB NEB 11/18/16 14:00 (Duoneb Neb) 1 ampule Q4HR NEB PRN NEB 11/18/16 13:15 (Mucinex Er) 600 mg Q12H PO 11/18/16 17:00 11/19/16 04:48 A/P Problem List: (1) Anemia ICD Code: D64.9 - Anemia, unspecified Status: Acute (2) Hyperlipidemia ICD Code: E78.5 - Hyperlipidemia, unspecified Status: Chronic (3) GERD (gastroesophageal reflux disease) ICD Code: K21.9 - Gastro-esophageal reflux disease without esophagitis Status: Chronic (4) Tobacco abuse ICD Code: Z72.0 - Tobacco use (5) Alcohol abuse ICD Code: F10.10 - Alcohol abuse, uncomplicated Status: Chronic (6) Atrial fibrillation ICD Code: I48.91 - Unspecified atrial fibrillation Status: Chronic (7) Benign hypertension ICD Code: I10 - Essential (primary) hypertension Status: Chronic (8) COPD (chronic obstructive pulmonary disease) ICD Code: J44.9 - Chronic obstructive pulmonary disease, unspecified (9) Osteoarthritis ICD Code: M19.90 - Unspecified osteoarthritis, unspecified site Status: Chronic (10) Depression ICD Code: F32.9 - Major depressive disorder, single episode, unspecified (11) Diabetes ICD Code: E11.9 - Type 2 diabetes mellitus without complications Assessment and Plan (1) Anemia Plan: Patient with severe symptomatic microcytic anemia and hemoglobin of 6. one on admission. Patient is supposed arthritis and denies NSAID use. Patient also has history of alcohol abuse. The patient status post fusion of 3 units of packed red blood cells with appropriate response of hemoglobin up to 9.8. Iron studies show low iron of 18, TIBC of 521 and percent saturation of 2.5%. Will check ferritin. Continue to monitor hemoglobin and for active bleeding. The patient status post EGD with findings of a 3 cm hiatal hernia, thickened gastric folds involving the entire stomach, biopsies were obtained. Follow-up pathology. 11/20 Patient tolerating full liquid diet, will advance to soft diet. CBC for today pending. Case discussed with Siena Soria. I will discharge patient if he tolerates diet and hemoglobin is stable. Consult physical therapy. (2) Hyperlipidemia Plan: Continue statin. Monitor as an outpatient. (3) GERD (gastroesophageal reflux disease) Plan: Continue PPI. (4) Tobacco abuse Plan: Chest x-ray obtained and showed chronic interstitial changes which I described to be stable. Hyperinflation suggestive of COPD. No acute infiltrate or effusion. INR on admission subtherapeutic at 1.7, trending down to 1.5 today. Continue to monitor PT/INR and continue to hold aspirin and Coumadin until cleared by GI to be restarted. (5) Alcohol abuse Plan: No evidence of alcohol withdrawal. Continue with CIWA protocol. (6) Atrial fibrillation Plan: Patient on aspirin and Coumadin at home which were held on admission. 11/20 I will resume aspirin and Coumadin. (7) Benign hypertension Plan: BP seems to be stable. Apparently the patient's is not on any antihypertensive medication. We'll continue to monitor off BP meds. (8) COPD (chronic obstructive pulmonary disease) ICD Code: J44.9 - Chronic obstructive pulmonary disease, unspecified Plan: The pressure seems to be stable. The patient can follow-up with PMD for further management. Continue duo nebs will hospitalized. (9) Osteoarthritis Plan: Patient denies NSAID use. Tylenol as needed for pain. (10) Depression Plan: Continue paroxetine. Seems to be stable. (11) Diabetes Plan: Patient on metformin which was held admission. Continue SSI with insulin NovoLog and continue to monitor Accu-Cheks. Blood sugar seems stable. GI prophylaxis: On PPI. DVT prophylaxis: Continue with SCDs,Resume Coumadin today. Discharge Planning Possible DC in am pending stabilization of hemoglobin. PT eval pending. Problem Qualifiers (1) Anemia: Qualified Codes: D64.9 - Anemia, unspecified (2) GERD (gastroesophageal reflux disease): Qualified Codes: K21.9 - Gastro-esophageal reflux disease without esophagitis (3) Atrial fibrillation: Qualified Codes: I48.2 - Chronic atrial fibrillation (4) Diabetes: Qualified Codes: E11.9 - Type 2 diabetes mellitus without complications Hans Schneider MD Nov 20, 2016 12:21
[2016-11-20 14:59] LABS: HEMATOCRIT 35.3 % (39.0-51.0); MEAN CELL VOLUME 69.8 FL (80.0-100.0); MEAN CORPUSCULAR HEMOGLOBIN 20.2 PG (27.0-34.0); PLATELET COUNT 253 TH/MM3 (150-450); RED BLOOD COUNT 5.06 MIL/MM3 (4.50-5.90); RED CELL DISTRIBUTION WIDTH 26.5 % (11.6-17.2); WHITE BLOOD COUNT 6.2 TH/MM3 (4.0-11.0)
[2016-11-20 15:10] LABS: MEAN CORPUSCULAR HGB CONC 28.9 % (32.0-36.0)
[2016-11-20 15:14] LABS: BICARBONATE 23.5 MEQ/L (21.0-32.0)
[2016-11-20] MEDS ORDERED: ASPIRIN 81 MG CHEW TAB PO SCH (16:00)
[2016-11-20] MEDS ORDERED: WARFARIN SOD 2 MG TAB PO SCH (16:00)
[2016-11-20] MEDS ORDERED: THERM PO (17:58)
[2016-11-20] MEDS ORDERED: PROT40TA PO (17:58)
[2016-11-20] MEDS ORDERED: GNP100TA3 PO (17:58)
[2016-11-20] MEDS ORDERED: FOLI1TAB6 PO (17:58)
--- NOTE | 2016-11-20 18:03 | HHI.DS ---
Discharge Summary Admission Date Nov 18, 2016 at 12:31 Discharge Date: Nov 20, 2016 Admitting Diagnosis anemia (1) Anemia ICD Code: D64.9 - Anemia, unspecified Diagnosis: Principal Status: Acute (2) Hyperlipidemia ICD Code: E78.5 - Hyperlipidemia, unspecified Diagnosis: Principal Status: Chronic (3) GERD (gastroesophageal reflux disease) ICD Code: K21.9 - Gastro-esophageal reflux disease without esophagitis Diagnosis: Principal Status: Chronic (4) Tobacco abuse ICD Code: Z72.0 - Tobacco use Diagnosis: Principal (5) Alcohol abuse ICD Code: F10.10 - Alcohol abuse, uncomplicated Diagnosis: Principal Status: Chronic (6) Atrial fibrillation ICD Code: I48.91 - Unspecified atrial fibrillation Diagnosis: Principal Status: Chronic (7) Benign hypertension ICD Code: I10 - Essential (primary) hypertension Diagnosis: Principal Status: Chronic (8) COPD (chronic obstructive pulmonary disease) ICD Code: J44.9 - Chronic obstructive pulmonary disease, unspecified Diagnosis: Principal (9) Osteoarthritis ICD Code: M19.90 - Unspecified osteoarthritis, unspecified site Diagnosis: Principal Status: Chronic (10) Depression ICD Code: F32.9 - Major depressive disorder, single episode, unspecified Diagnosis: Principal (11) Diabetes ICD Code: E11.9 - Type 2 diabetes mellitus without complications Diagnosis: Principal Procedures EGD Brief History - From Admission Patient is a 81-year-old male who presents to the emergency department after having had an incidentally low hemoglobin checked by his primary care doctor. His hemoglobin was 5.9. He does say he's been more fatigued over the past several months, short of breath with exertion and tired when walking long distances but he says he thought it was related to his cigarette smoking, moderate severity, constant. He denies any dark stools or black stools. He had a colonoscopy 4 years ago and had polyps removed. He does drink 6 alcoholic beverages per day and states that he has not stopped that in an extended period time. He denies any NSAID use. Therefore patient will be covered with the [facility] protocol for his alcoholism NicoDerm for his tobacco abuse We'll get anemia labs Consult gastroenterology Transfuse 3 units packed red blood cells CBC/BMP: 11/20/16 1353 11/20/16 1353 Significant Findings Laboratory Tests Test 11/18/16 11:15 11/19/16 07:25 11/20/16 13:53 Red Blood Count 3.49 MIL/MM3 (4.50-5.90) Hemoglobin 6.1 GM/DL (13.0-17.0) 9.8 GM/DL (13.0-17.0) 10.2 GM/DL (13.0-17.0) Hematocrit 21.9 % (39.0-51.0) 32.2 % (39.0-51.0) 35.3 % (39.0-51.0) Mean Corpuscular Volume 62.6 FL (80.0-100.0) 68.1 FL (80.0-100.0) 69.8 FL (80.0-100.0) Mean Corpuscular Hemoglobin 17.4 PG (27.0-34.0) 20.8 PG (27.0-34.0) 20.2 PG (27.0-34.0) Mean Corpuscular Hemoglobin Concent 27.8 % (32.0-36.0) 30.6 % (32.0-36.0) 28.9 % (32.0-36.0) Red Cell Distribution Width 21.7 % (11.6-17.2) 25.7 % (11.6-17.2) 26.5 % (11.6-17.2) Monocytes (%) (Auto) 9.6 % (0.0-8.0) 9.8 % (0.0-8.0) Prothrombin Time 18.7 SEC (9.8-11.6) 17.0 SEC (9.8-11.6) Random Glucose 117 MG/DL (74-106) Calcium Level 8.4 MG/DL (8.5-10.1) Aspartate Amino Transf (AST/SGOT) 9 U/L (15-37) Chloride Level 110 MEQ/L (98-107) Estimat Glomerular Filtration Rate 60 ML/MIN (>89) 65 ML/MIN (>89) 63 ML/MIN (>89) Iron Level 18 MCG/DL (65-175) 57 MCG/DL (65-175) Total Iron Binding Capacity 521 MCG/DL (250-450) 557 MCG/DL (250-450) Percent Iron Saturation 3.5 % (20-50) 10.2 % (20-50) Ferritin 6 NG/ML (26-388) 9 NG/ML (26-388) Ovalocytes 1+ (NORMAL) Erythrocyte Sedimentation Rate 44 mm/hr (0-20) Haptoglobin 212 MG/DL (30-200) Folate GREATER THAN 20.0 NG/ML Rheumatoid Factor Screen POSITIVE (NEGATIVE) Rheumatoid Factor Titer 147.0 IU/ML (0.0-14.9) Imaging Last Impressions Chest X-Ray 11/18/16 0000 Signed Impressions: Service Date/Time: Wednesday, November 18, 2016 13:51 - CONCLUSION: 1. Chronic interstitial changes are stable. 2. Hyperinflation suggesting COPD. 3. No acute infiltrate or effusion. Adrián Elena Jr., MD PE at Discharge AAOx3, NAD lying in bed S1S2 RRR, no MRG Clear lungs BL Soft abdomen, non tender, non distended Pt update on day of discharge Hemoglobin stable. No reports of active bleeding. Patient denies cp/sob. denies melena or hematochezia. Hospital Course (1) Anemia Patient with severe symptomatic microcytic anemia and hemoglobin of 6. on on admission. Patient has arthritis but denied NSAID use. Patient also has history of alcohol abuse. Patient was transfused 3 units of packed red blood cells with appropriate response of hemoglobin up to 9.8. Iron studies showed low iron of 18, TIBC of 521 and percent saturation of 2.5%, ferritin also low concordant with iron deficiency anemia. The patient status post EGD with findings of a 3 cm hiatal hernia, thickened gastric folds involving the entire stomach, biopsies were obtained. Follow-up pathology. 11/20 Patient tolerating full liquid diet, will advance to soft diet. CBC for today pending. Case discussed with Siena Soria. Patient tolerated diet and hemoglobin remained stable. Physical therapy consulted. (2) Hyperlipidemia Continue statin. Monitor as an outpatient. (3) GERD (gastroesophageal reflux disease) On PPI. (4) Tobacco abuse Chest x-ray obtained and showed chronic interstitial changes which were described to be stable. Hyperinflation suggestive of COPD. No acute infiltrate or effusion. INR on admission subtherapeutic at 1.7, monitored. Aspirin and Warfarin heldon admission. Resumed upon discharge after I discussed the case with GI and was given an ok to resume them. (5) Alcohol abuse No evidence of alcohol withdrawal during hospital stay. Continue with CIWA protocol. (6) Atrial fibrillation Patient on aspirin and Coumadin at home which were held on admission. Resumed upon discharge. (7) Benign hypertension BP seems to be stable. Apparently the patient's is not on any antihypertensive medication. Monitored off of BP meds. (8) COPD (chronic obstructive pulmonary disease) The pressure seems to be stable. The patient can follow-up with PMD for further management. Continue duo nebs will hospitalized. (9) Osteoarthritis Patient denies NSAID use. Tylenol as needed for pain. (10) Depression Continue paroxetine. Seems to be stable. (11) Diabetes Patient on metformin which was held admission. Continue SSI with insulin NovoLog and continue to monitor Accu-Cheks. Blood sugar remained stable. GI prophylaxis: On PPI. DVT prophylaxis: Continue with SCDs,Resume Coumadin today. Pt Condition on Discharge: Stable Discharge Disposition: Discharge Home Discharge Time: <= 30 minutes Discharge Instructions DIET: Follow Instructions for: Diabetic Diet Activities you can perform: Regular-No Restrictions Activities to Avoid: Strenuous Activity Follow up Referrals: Gastroenterology - 2 Weeks with Tai Del Valle MD PCP Follow-up - 1 Week New Medications: Pantoprazole (Protonix) 40 Mg Tab 40 MG PO DAILY for Reflux, #30 TAB 0 Refills Folic Acid (Folic Acid) 1 Mg Tablet 1 MG PO DAILY for Alcohol Detox, #31 TAB Multiple Vitamins W/ Minerals (Thera M Plus) 1 Tab 1 TAB PO DAILY for Alcohol Detox, #31 TAB-CAP Thiamine HCl (Gnp Vitamin B-1) 100 Mg Tab 100 MG PO DAILY for Alcohol Detox, #31 TAB Continued Medications: Aspirin (Aspirin) 81 Mg Chew 81 MG PO DAILY, TAB 0 Refills Atorvastatin (Atorvastatin) 10 Mg Tab 10 MG PO HS for Cholesterol Management, #30 TAB 0 Refills Metformin (Metformin) 500 Mg Tab 500 MG PO BIDPC for Blood Sugar Management, #60 TAB 0 Refills With meals Paroxetine (Paroxetine) 20 Mg Tab 20 MG PO DAILY, #30 TAB 0 Refills Warfarin (Warfarin) 2 Mg Tab 2 MG PO DAILY for Blood Clot Prevention, #30 TAB 0 Refills Discontinued Medications: Omeprazole (Omeprazole) 20 Mg Tab 20 MG PO DAILY, #30 TAB 0 Refills Hans Schneider MD Nov 20, 2016 18:03
== END 2016-11-20 19:20 | disposition home or self-care (01) | DRG 812 ==
LOC: NEPC 10:41 → NEDA 12:31 → HOCB 18:22
PROVIDERS: ADMIT Hospitalist; ATTEND Hospitalist
PROC: 30233N1 Transfusion of Nonautologous Red Blood Cells into Peripheral Vein, Percutaneous Approach (ICD-10-PCS; principal; 2016-11-18)
PROC: 0DB68ZX Excision of Stomach, Via Natural or Artificial Opening Endoscopic, Diagnostic (ICD-10-PCS; 2016-11-19)
DX: D50.9 Iron deficiency anemia, unspecified (principal); J44.9 Chronic obstructive pulmonary disease, unspecified; I48.91 Unspecified atrial fibrillation; K21.9 Gastro-esophageal reflux disease without esophagitis; E11.9 Type 2 diabetes mellitus without complications; I10 Essential (primary) hypertension; E78.5 Hyperlipidemia, unspecified; F17.210 Nicotine dependence, cigarettes, uncomplicated; M19.90 Unspecified osteoarthritis, unspecified site; K59.09 Other constipation; F41.9 Anxiety disorder, unspecified; F10.20 Alcohol dependence, uncomplicated; K44.9 Diaphragmatic hernia without obstruction or gangrene; F32.9 Major depressive disorder, single episode, unspecified; Z79.82 Long term (current) use of aspirin; Z79.84 Long term (current) use of oral hypoglycemic drugs; Z79.01 Long term (current) use of anticoagulants
CPT/HCPCS: 36430; 71020; 80048; 80053; 82607; 82668; 82728; 82746; 82747; 82948; 83010; 83036; 83540; 83550; 83615; 83735; 84100; 84439; 84443; 85025; 85027; 85044; 85610; 85652; 85730; 86038; 86140; 86430; 86850; 86880; 86900; 86901; 86920; 88305; 88307; 88312; 93005; C9113; J1940; J7050; P9016